=== PATIENT | female | born 1965 | race Caucasian/White ===

== ENCOUNTER 2020-07-18 19:27 | Emergency (ER) | payer OTHER ==
[~2020-07-18] VITALS: Ht 167.6 cm; Wt 54.4 kg
[2020-07-18] MEDS ORDERED: SUCRALFATE1 GM PO (19:43)
--- NOTE | 2020-07-19 21:09 | EKG ---
[facility] [address] [place], [place] [address] Signed Sinus bradycardia Otherwise normal ECG No previous ECGs available Confirmed by ILIANA LOPEZ DO ([id number]) on 07/19/2020 9:09:39 PM Electronically Signed By: ILIANA LOPEZ DO 07/19/[id number] PATIENT NAME: TAMARA ZAMORA Electrocardiogram DATE OF : 65 PHYSICIAN: ILIANA LOPEZ DO REPORT #: [id number] REPORT IS CONFIDENTIAL AND NOT TO BE RELEASED WITHOUT AUTHORIZATION
== END 2020-07-18 21:58 | disposition home or self-care (01) ==
LOC: ED 19:27
DX: R25.3 Fasciculation (principal); E78.00 Pure hypercholesterolemia, unspecified; D64.9 Anemia, unspecified
CPT/HCPCS: 70450; 80053; 81001; 85025; 85610; 85730; 93005; 93010; 99284-25